=== PATIENT | female | born 1970 | race Caucasian/White ===

== ENCOUNTER → 2016-12-12 13:42 | Outpatient (CLI) | payer SELFPAY | END | disposition home or self-care (01) | LOC: D.MAMMO 09:00 | DX: N63 Unspecified lump in breast (principal) ==

== ENCOUNTER 2018-07-31 13:31 | Emergency (ER) | payer SELFPAY ==
[~2018-07-31] VITALS: Ht 170.2 cm; Wt 68.2 kg
[2018-07-31 13:33] VITALS: Ht 170.2 cm; Wt 68.2 kg
[2018-07-31 14:51] LABS: HEMATOCRIT 40.1 % (36.0-48.0); HEMOGLOBIN 13.7 g/dL (12-16); LYMPHOCYTES 18.2 % (15-50); MCH 30.3 pg (26.0-34.0); MCHC 34.2 g/dL (31.0-37.0); MCV 88.7 fL (80.0-100.0); MEAN PLATELET VOLUME 8.1 fL (7.4-10.4); NEUTROPHILS 74.5 % (40-80); RBC 4.52 10x6/uL (4.00-5.40); RDW 12.5 % (11.5-14.5); WBC 8.9 10x3/uL (4.8-10.8)
[2018-07-31 14:56] LABS: PLATELET COUNT 261 10x3/uL (130-400)
[2018-07-31 15:00] LABS: APPEARANCE CLEAR (CLEAR); COLOR YELLOW (YELLOW)
[2018-07-31 15:01] LABS: ALBUMIN 4.1 g/dL (3.4-5.0); ALKALINE PHOSPHATASE 91 U/L (46-116); ALT (SGPT) 35 U/L (10-68); BILIRUBIN - TOTAL 0.42 mg/dL (0.2-1.3); CALC OSMOLALITY 279 mosm/kg (275-300); CALCIUM 10.3 mg/dL (8.5-10.1); CARBON DIOXIDE 24.9 mmol/L (21.0-32.0); CHLORIDE - SERUM 105 mmol/L (98-107); CREATININE - SERUM 0.7 mg/dL (0.6-1.3); GLUCOSE 112 mg/dL (74-106); POTASSIUM - SERUM 3.4 mmol/L (3.5-5.1); PROTEIN - SERUM 7.8 g/dL (6.4-8.2); SODIUM 141 mmol/L (136-145); UREA NITROGEN 7 mg/dL (7-18); eGFR NON AFRICAN AMERICAN > 90 mL/min (90-120)
[2018-07-31 15:01] LABS: BILIRUBIN NEGATIVE (NEGATIVE); GLUCOSE NEGATIVE (NEGATIVE); KETONE NEGATIVE (NEGATIVE); NITRITE NEGATIVE (NEGATIVE); PROTEIN NEGATIVE (NEGATIVE); SPECIFIC GRAVITY 1.015 (1.005-1.020); UROBILINOGEN NORMAL (NORMAL)
[2018-07-31 15:04] LABS: AMYLASE - SERUM 50 U/L (25-115); LIPASE 80 U/L (73-393)
[2018-07-31 15:06] LABS: TROPONIN-I < 0.017 ng/mL (0.000-0.060)
[2018-07-31] MEDS ORDERED: ZOFRAN ODT4 MG/UDTAB PO (16:47)
[2018-07-31] MEDS ORDERED: BENTYL 20 MG TA20 MG PO (16:47)
[2018-07-31 18:43] VITALS: BP 145/88
== END 2018-07-31 18:40 | disposition home or self-care (01) ==
LOC: D.ER 13:31
PROVIDERS: Family Medicine
DX: R10.11 Right upper quadrant pain (principal); R11.0 Nausea; K21.9 Gastro-esophageal reflux disease without esophagitis